=== PATIENT | female | born 1945 | race Caucasian/White ===

== ENCOUNTER 2019-07-01 12:36 | Inpatient (IN) | payer MEDICARE ==
[2019-07-01 13:06] LABS: #Basophils 0.1 thou/uL (0.0-0.2); #Eosinphils 0.1 thou/uL (0.0-0.7); #Lymphocytes 1.6 thou/uL (1.20-3.40); #Neutrophils 9.2 thou/uL (1.40-6.50); %Basophils 0.5 % (0.0-1.0); %Eosinophils 0.6 % (0.0-10.0); %Lymphocytes 13.1 % (21.0-51.0); %Monocytes 8.2 % (0.0-10.0); %Neutrophils 77.6 % (42.0-75.0); Hemoglobin 15.2 g/dL (12.0-16.0); Mean Corpuscular HGB CONC 34.7 g/dL (32.0-36.0); Mean Corpuscular Volume 89.3 fL (78.0-98.0); Mean Platelet Volume 8.4 fL (7.4-10.4); Platelet Count 241 thou/uL (130-400); RBC Distribution Width 11.8 % (11.5-14.5); Red Blood Cell (RBC) Count 4.91 mill/uL (4.20-5.40); White Blood Cell (WBC) Count 11.9 thou/uL (4.8-10.8)
[2019-07-01] MEDS ORDERED: Lorazepam 2 MG/ML VIAL ONE (13:09)
[2019-07-01] MEDS ORDERED: Labetalol HCl 100 MG/20 ML VIAL ONE (13:09)
[2019-07-01 13:11] LABS: INR-International Normal Ratio 0.9; Prothrombin Time 12.5 SEC (12.0-14.7)
[2019-07-01 13:13] LABS: PTT 20.7 SEC (22.9-36.1)
--- NOTE | 2019-07-01 13:21 | RAD ---
Exam: Chest one view HISTORY:Altered mental status Comparison: 09/22/2010 FINDINGS: Cardiac silhouette: Normal Aorta: Slight elongation of the aorta Pulmonary vessels: Normal Costophrenic angles: Clear LUNGS: No masses or consolidation. Lungs are mildly hyperinflated. Pneumothorax: None Osseous abnormalities: None IMPRESSION: No acute cardiopulmonary process.
[2019-07-01 13:24] LABS: ALT (SGPT) 24 U/L (8-55); AST (SGOT) 38 U/L (5-34); Alkaline Phosphatase 95 U/L (40-110); Anion Gap 19 mmol/L (10-20); BUN (Urea Nitrogen) 23 mg/dL (9.8-20.1); Bilirubin, Total 1.1 mg/dL (0.2-1.2); Calc. Creatinine Clearance 0 mL/min (70-130); Calcium 9.9 mg/dL (7.8-10.44); Carbon Dioxide 23 mmol/L (23-31); Chloride 99 mmol/L (98-107); Estimated GFR-MDRD 73; Globulin 2.7 g/dL (2.4-3.5); Glucose 105 mg/dL (83-110); Potassium 3.7 mmol/L (3.5-5.1); Protein, Total 7.7 g/dL (6.0-8.3); Sodium 137 mmol/L (136-145)
--- NOTE | 2019-07-01 13:32 | CT ---
CT BRAIN WITHOUT CONTRAST: HISTORY: Altered mental status. FINDINGS: Comparison is made with the exam of 09/22/2010. There are changes of cortical atrophy and chronic small vessel ischemic disease. There are old lacun ar infarctions in the thalami. No evidence of acute infarction, midline shift, or abnormal extraaxia l fluid collections is seen. Vascular calcifications are noted. The bony calvarium is intact. The visualized paranasal sinuses and mastoid air cells are well aerated. IMPRESSION: No CT evidence of acute intracranial process. Report was called over the telephone to Katia Maradiaga at 1:14 p.m. CODE CR POS: JAMEL
[2019-07-01 13:33] LABS: Acetaminophen Less than 6.0 mcg/mL (10.0-30.0); Alcohol Less than 10 mg/dL (Less than 10); Salicylate Less than 8.0 mg/dL (15.0-30.0)
[2019-07-01 14:33] LABS: Bacteria/HPF None Seen HPF (None Seen); Bilirubin Negative (Negative); Blood, Urine 1+ (Negative); Clarity Clear (Clear); Glucose, Urine (Dipstick) Normal (Negative); Leukocyte Negative Leu/uL (Negative); Nitrite Negative (Negative); Protein, Urine (Dipstick) 10 mg/dL (Neg-Trace); RBC/HPF 0-3 HPF (0-3); Squamous Epithelial 0-3 HPF (0-3); Urobilinogen Normal mg/dL (Less than 2); WBC/HPF 0-3 HPF (0-3)
[2019-07-01 14:38] LABS: Amphetamine Not Detected (NotDetected); Barbiturates Screen Not Detected (NotDetected); Benzodiazepine Screen Not Detected (NotDetected); Cocaine Metabolite Screen Not Detected (NotDetected); Medtox Control Line Valid? VALID (VALID); Medtox Reader # READER 4; Methadone Not Detected (NotDetected); Methamphetamine Not Detected (NotDetected); Opiate Screen Not Detected (NotDetected); Oxycodone Screen Not Detected (NotDetected); Phencyclidine (PCP) Not Detected (NotDetected); THC/Cannabinoid Screen Not Detected (NotDetected); Tricyclic Screen Not Detected (NotDetected)
--- NOTE | 2019-07-01 16:23 | PDOC.FPRHP ---
- History of Present Illness Chief Complaint: confusion History of Present Illness: 74 y/o F with a pmhx of HTN, here today for X3 days of confusion. Pt's family discovered she was not her normal self on Monday. They notices some L-facial droop and non-fluent/confused speech. Pt states, "Something went wrong with her dog through her phone and I could not figure out what I took." Pt denies any CP, WRIGHT, SOB, cough, fever or chills. Pt does admit to being confused and having trouble with her speech and concentration. Pt states she has double vision when looking to the left, but not to the right. She has never had this problem before. Pt's BP was 227/120 upon initial entry to ER. Pt was given labetalol 10 mg IV X3 and 500 mL NS IVF in the ED. Neg CXR Neg Head CT WBC 11.9 UA: ketones and blood + CPK 183 BUN 23 - Allergies/Adverse Reactions Allergies Allergy/AdvReac Type Severity Reaction Status Date / Time No Known Allergies Allergy Verified 07/01/19 17:42 - Home Medications Medication Instructions Recorded Confirmed Type Labetalol HCl 450 mg PO BID 07/01/19 07/01/19 History - History PMHx: HTN PSHx: BTL FHx: Brother: [place] at 46 Sister: HTN Mother: HTN, CAD, [place] Social: Denies tobacco use, etoh, or drug use. Lives alone at home. - Review of Systems General: denies: fever/chills, night sweats Eyes: reports: vision changes (see HPI) Respiratory: denies: cough, shortness of breath Cardiovascular: denies: chest pain, edema Gastrointestinal: denies: nausea, vomiting, diarrhea Skin: denies: rashes, lesions Musculoskeletal: denies: pain, tenderness Neurological: reports: other (facial droop left, confused speech). denies: numbness, weakness Psychological: denies: anxiety - Vital signs BP: 184/109 HR: 78 RR: 25 Tmax: Pox: []% on [] Wt: [] - Physical Exam Constitutional: NAD, well developed -Constitutional: oriented to person and place only. Pt eating a meal with apple upon entry to the ED room. HEENT: normocephalic and atraumatic, PERRLA, EOMI, conjunctiva clear, no scleral icterus, grossly normal hearing, MMM, oropharynx clear -HEENT: double vision in left visual field. Neck: supple, FROM, trachea midline, no LAD, no JVD Chest: no-tender to palpation, no lesions Heart: RRR, pulses present, no edema -Heart: 3/6 sys murmur auscultated loudest over aortic valve. Lungs: CTAB, no respiratory distress, good air movement, no rales/rhonchi, no wheezing, no retractions Abdomen: soft, non-tender, bowel sounds present, no masses/distention, no hernias Musculoskeletal: normal structure, normal tone, ROM grossly normal Neurological: normal sensation -Neurological: Double vision in left visual field. EOMI. Horizontal nystagmus when looking laterally on both sides. PERRLA. Left ptosis. Right smile droop. Sensation intact in all 4 extremities. Strength 5/5 in all 4 extremities. Skin: no rash/lesions, good turgor, capillary refill <2 seconds, no jaundice Heme/Lymphatic: no unusual bruising or bleeding, no purpura, no petechia -Psychiatric: Disoriented to time. Thinks its 2016. [facility] H&P: Results - Labs Result Diagrams: 07/01/19 12:51 07/01/19 12:51 Lab results: WBC 11.9 thou/uL (4.8-10.8) H 07/01/19 12:51 Hgb 15.2 g/dL (12.0-16.0) 07/01/19 12:51 Hct 43.8 % (36.0-47.0) 07/01/19 12:51 MCV 89.3 fL (78.0-98.0) 07/01/19 12:51 Plt Count 241 thou/uL (130-400) 07/01/19 12:51 Neutrophils % 77.6 % (42.0-75.0) H 07/01/19 12:51 Sodium 137 mmol/L (136-145) 07/01/19 12:51 Potassium 3.7 mmol/L (3.5-5.1) 07/01/19 12:51 Chloride 99 mmol/L (98-107) 07/01/19 12:51 Carbon Dioxide 23 mmol/L (23-31) 07/01/19 12:51 BUN 23 mg/dL (9.8-20.1) H 07/01/19 12:51 Creatinine 0.77 mg/dL (0.6-1.1) 07/01/19 12:51 Glucose 105 mg/dL (83-110) 07/01/19 12:51 Calcium 9.9 mg/dL (7.8-10.44) 07/01/19 12:51 Total Bilirubin 1.1 mg/dL (0.2-1.2) 07/01/19 12:51 AST 38 U/L (5-34) H 07/01/19 12:51 ALT 24 U/L (8-55) 07/01/19 12:51 Alkaline Phosphatase 95 U/L (40-110) 07/01/19 12:51 Creatine Kinase 183 U/L (29-168) H 07/01/19 12:51 Serum Total Protein 7.7 g/dL (6.0-8.3) 07/01/19 12:51 Albumin 5.0 g/dL (3.4-4.8) H 07/01/19 12:51 Urine Ketones 20 mg/dL (Negative) A 07/01/19 13:53 Urine Blood 1+ (Negative) A 07/01/19 13:53 Urine Nitrite Negative (Negative) 07/01/19 13:53 Ur Leukocyte Esterase Negative Brandon/uL (Negative) 07/01/19 13:53 Urine RBC 0-3 HPF (0-3) 07/01/19 13:53 Urine WBC 0-3 HPF (0-3) 07/01/19 13:53 Ur Squamous Epith Cells 0-3 HPF (0-3) 07/01/19 13:53 Urine Bacteria None Seen HPF (None Seen) 07/01/19 13:53 - EKG Interpretation EKG: NSP 75 bpm. - Radiology Interpretation MRI - head Status: report reviewed by me (Multiple lacunar infarcts diffusely. Evidence of chronic hypertensive encephalopathy. Old lacunar infarcts in thalami.) FMR H&P: A/P - Problem List (1) Hypertensive emergency Current Visit: Yes Status: Acute Code(s): I16.1 - HYPERTENSIVE EMERGENCY (2) Hypertensive encephalopathy Current Visit: Yes Status: Chronic Code(s): I67.4 - HYPERTENSIVE ENCEPHALOPATHY (3) Leukocytosis, unspecified Current Visit: Yes Status: Acute Code(s): D72.829 - ELEVATED WHITE BLOOD CELL COUNT, UNSPECIFIED (4) Lacunar infarct, acute Current Visit: Yes Status: Acute Code(s): I63.81 - OTHER CEREB INFRC DUE TO OCCLS OR STENOSIS OF SMALL ARTERY (5) Dysphasia Current Visit: Yes Status: Acute Code(s): R47.02 - DYSPHASIA - Plan 74 y/o F presenting to ED with hypertensive encephalopathy 1. Acute Hypertensive Encephalopathy - Initial BP 227/120 - 1st hour goal <180/110 - 23 hours thereafter goal <160/110 - Ordered Nicardipine drip to meet above goal BP's. - Neurology, Dr. Salazar 07/01. Appreciate recommendations. 2. Hypertensive Emergency - Stat MRI: Multiple lacunar infarcts diffusely. Evidence of chronic hypertensive encephalopathy. Old lacunar infarcts in thalami. - Ordered Mag, Phos, TSH - EKG NSR 75 bpm 3. Acute Lacunar Infarcts - Left basal ganglia, associated with punctate hemosiderin, representing hemorrhages - Left temporal lobe, Right occipital lobe, and bilateral cerebellar hemispheres 3. Chronic HTN - Holding labetalol 450 mg BID, while on nicardipine drip - Will re-evaluate and add back once stable. 4. Leukocytosis - WBC 11.9 - ordered procal 5. Dysphasia - 2/2 #1, 2, 3. - neuro consult placed - see BP goals above. - Speech evaluation and assessment before diet ordered placed. NPO in meantime. Code status: full code DVT ppx: SCDs Diet: NPO until speech study/evaluation for diet. Dispo: Pt admitted to CCU for nicardipine drip to manage BP's. Goal <160/110. Anticipate at least 2 nights hospital stay. FMR H&P: Upper Level - Pertinent history 74 year old female presents with a four day history of altered mental status per family. She was reportedly not acting herself on Monday per family. She declined seeking evaluation at that time. Today, her family brought her into ED due to continued concerned. Family reports that they called vocational rehab consultant Assistant [employer] this week and were told to bring patient into ED, but she declined being taken in at the time. She has animals at home that she doesn't want to leave. Patient cannot recall the name of her PCP but states she sees Dr. Vasquez who provides the majority of her care. She has taken HCTZ in the past but had a bad reaction. Patient was on labetolol BID prior to admission. She saw Dr. Vasquez approximately two weeks ago and everything checked out good at the time. Family is uncertain if she had an echo done previously. Patient's sister and brother are both on metoprolol and have had difficult to treat BP similar to patient. The metoprolol reportedly works well. - Pertinent findings General: Alert and oriented. Answering questions during my exam. Dozing off intermittently. HEENT: MMM Cardio: 3/6 systolic murmur heard best at right sternal border Resp: No acute respiratory distress Abdomen: Soft, nontender Ext: No cyanosis or edema Neuro: Right facial droop, left ptosis - Plan Date/Time: 07/01/191613 I, Adriane Salcedo, have evaluated this patient and agree with findings/plan as outlined by culinary internship resident. Pertinent changes/additions are listed here. Hypertensive encephalopathy/Hypertensive emergency - Waxing and waning mental status - BP on admission >220/110 - Admit to ICU on nicardipine drip; goal BP in first hour 180/120 and 160/110 for next 23 hours - Monitor mental status - Stat MRI - CT brain with old lacunar infarcts, but nothing new - Consult neurology 07/01; appreciate recommendations - EKG NSR - Neuro checks - Cardiology consult in AM; Dr. Vasquez is primary Assistant [employer] Chronic HTN - Holding labetalol 450 mg BID, while on nicardipine drip - Will re-evaluate and add back once stable. Leukocytosis - WBC 11.9 - ordered procal, suspect leukamoid reaction Dysphasia - 2/2 to hypertensive encephalopathy - Neuro consult placed - See BP parameters above - Speech evaluation and assessment before diet ordered placed. NPO in meantime Systolic murmur - Will order echo if one not done recently Code status: Full code DVT ppx: SCDs Diet: NPO until speech study/evaluation for diet Dispo: Pt admitted to CCU for nicardipine drip to manage BP's. Goal <160/110. Anticipate at least 2 nights hospital stay. Addendum - Attending - Attending Attestation Date/Time: 07/01/19 3448 I personally evaluated the patient and discussed the management with Dr. Carmona I agree with the History, Examination, Assessment and Plan documented above with any addition or exceptions noted below.
[2019-07-01 16:32] LABS: Troponin I Less than 0.010 ng/mL (< 0.028)
--- NOTE | 2019-07-01 17:41 | PDOC.FM ---
- Objective Result Diagrams: 07/01/19 12:51 07/01/19 12:51 Addendum - Attending - Attending Attestation Date/Time: 07/01/19 1729 I personally evaluated the patient and discussed the management with Dr. Carmona/ Matias I agree with the History, Examination, Assessment and Plan documented in Resident Hx&PE in separate document with any addition or exceptions noted below. 74 yo HTN female brought in to ER by her Sister. Patient with confusion last 4 days and refused to go to ER. despite her children urging her to seek medical care. Patient with anomic aphasia, confabulating ,trying to feed dog a cell phone. Patient with initial BP in ER 227/120 very labile readings. NIH score [address] no acute changes. PMHX: Meds Labetolol Allergies NKDA Social 3 children lives alone [place] Habits nonsmoker non drinker Surgery BTL ROS limited by patient confusion HTN,Gout see resident note for detailes P.E. alert pleasant female repeatedly asking to go home BP 180/115 at time visit P 70 regular afebrile HEENT mild right sided facial droop patient with c/o diplopia with left lateral gaze Neck supple no JVD no carotid bruit appreciated Lung CTA Heart NSR no gallop[ no murmer Abdomen soft non tender Ext no C/C/E Neuro oriented to person marked confusion anomic aphasia mild right sided facial droop otherwise CN 2-12 intact nl reflexes A. HTN encephalopathy P. admit to ICU for IV Cardene drip f/u MRI brain when more stable discussed with patient and family she is full code see resident note for further detail
--- NOTE | 2019-07-01 17:45 | MRI ---
MRI BRAIN NONCONTRAST: DATE: 07/01/2019 HISTORY: 74-year-old female with hypertensive emergency. Memory loss and facial droop. COMPARISON: No prior brain MRIs. FINDINGS: There is a tight cluster of several small subcentimeter foci of moderate T2 hyperintensity in the med ial aspect of the left basal ganglia anteriorly with restricted diffusion, representing acute or subacute lacunar infarctions. There are also additional bilateral old lacunar infarctions in the thal ami. Some of them are associated with punctate foci of hemosiderin representing remote tiny hemorrhages. A few these are also seen scattered in left temporal lobe, right occipital lobe, and carol ann ateral cerebellar hemispheres. There are patchy multifocal regions of periventricular, deep, and subcortical white matter T2 hyperin tensities representing chronic ischemic white matter changes due to small vessel disease. Ventricles are normal in size and configuration. No mass effect or midline shift. 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 No evidence of acute intracranial hemorrhage. No extra-axial fluid collection. IMPRESSION: 1) acute/subacute cluster of several tiny lacunar infarctions in the left thalamus. 2) multiple bilateral old lacunar infarctions in the thalami. 3) evidence for chronic hypertensive encephalopathy. 4) moderate degree of chronic ischemic white matter changes.
[2019-07-01] MEDS ORDERED: Ondansetron ODT 4 MG TAB SL PRN (17:57)
[2019-07-01] MEDS ORDERED: Sodium Chloride 0.9% 1,000 ML IV SCH (17:57)
[2019-07-01] MEDS ORDERED: Acetaminophen 325 MG TAB PO PRN (17:57)
[2019-07-01] MEDS ORDERED: HYDROcodone/Acetaminophen 5/325 mg Tablet PO PRN ×2 (17:57)
[2019-07-01] MEDS ORDERED: Ondansetron PF 4 MG/2 ML Vial IVP PRN (17:57)
[2019-07-01 18:09] VITALS: BMI 26.9
[2019-07-01] MEDS: niCARdipine 25 MG in Sodium Chloride 0.9% 250 ML 240 ML IVPB SCH ×2 (19:09→22:26)
[2019-07-01 19:48] LABS: Magnesium 2.1 mg/dL (1.6-2.6); Phosphorus 2.4 mg/dL (2.3-4.7)
[2019-07-01 19:52] LABS: Troponin I 0.013 ng/mL (< 0.028)
[2019-07-01] MEDS: Lactated Ringer's 1,000 ML IV SCH (21:50)
[2019-07-02] MEDS: Lactated Ringer's 1,000 ML IV SCH (05:19)
[2019-07-02 05:34] LABS: Eosinophils 2 % (0-10); Hemoglobin 13.7 g/dL (12.0-16.0); Lymphocytes 19 % (21-51); MDiff Complete? YES; Mean Corpuscular HGB CONC 32.8 g/dL (32.0-36.0); Mean Corpuscular Hemoglobin 29.4 pg (27.0-31.0); Mean Corpuscular Volume 89.7 fL (78.0-98.0); Mean Platelet Volume 7.7 fL (7.4-10.4); Monocytes 7 % (0-10); Neutrophil 72 % (42-75); Platelet Count 230 thou/uL (130-400); Platelet Morphology Comment Appears Adequate; RBC Distribution Width 11.8 % (11.5-14.5); Red Blood Cell (RBC) Count 4.66 mill/uL (4.20-5.40); White Blood Cell (WBC) Count 10.3 thou/uL (4.8-10.8)
[2019-07-02 05:39] LABS: ALT (SGPT) 22 U/L (8-55); AST (SGOT) 24 U/L (5-34); Albumin 4.1 g/dL (3.4-4.8); Alkaline Phosphatase 80 U/L (40-110); Anion Gap 14 mmol/L (10-20); BUN (Urea Nitrogen) 10 mg/dL (9.8-20.1); Bilirubin, Total 1.1 mg/dL (0.2-1.2); Calc. Creatinine Clearance 91 mL/min (70-130); Calcium 8.8 mg/dL (7.8-10.44); Carbon Dioxide 24 mmol/L (23-31); Chloride 102 mmol/L (98-107); Estimated GFR-MDRD Greater than 90; Globulin 2.4 g/dL (2.4-3.5); Glucose 110 mg/dL (83-110); Protein, Total 6.5 g/dL (6.0-8.3); Sodium 137 mmol/L (136-145)
--- NOTE | 2019-07-02 05:57 | PDOC.FM ---
- Subjective Subjective: Patient is a much better this morning, she is sitting up eating breakfast upon entry to the room. Patients blood pressure was controlled overnight on the nicardipine drip. Today we will titrate nicardipine drip down and try to transfer to tele. Patient denies any pain or headache. Patient denies any chest pain or shortness of breath. Patient confusion is much better this morning. - Objective MAR Reviewed: Yes Vital Signs & Weight: Vital Signs (12 hours) Temp Pulse Ox 07/02/19 03:00 98.2 F 07/01/19 23:00 98.5 F 07/01/19 20:00 96 07/01/19 19:00 98.2 F 07/01/19 18:04 100 Weight Weight 68.9 kg Most Recent Monitor Data Heart Rate from ECG 74 NIBP 131/76 NIBP BP-Mean 94 Respiration from ECG 17 SpO2 96 I&O: 06/30/19 07/01/19 07/02/19 06:59 06:59 06:59 Intake Total 1876 Output Total 700 Balance 1176 Result Diagrams: 07/02/19 04:59 07/02/19 04:59 Phys Exam - Physical Examination Constitutional: NAD HEENT: PERRLA, moist MMs, sclera anicteric, oral pharynx no lesions Neck: no nodes, no JVD, supple, full ROM Respiratory: no wheezing, no rales, no rhonchi, clear to auscultation bilateral Cardiovascular: RRR, no rub 2/6 sys murmur Gastrointestinal: soft, non-tender, no distention, positive bowel sounds Musculoskeletal: no edema, pulses present Neurological: normal sensation, moves all 4 limbs L ptosis and R mouth droop improves slightly today. Double vision L visual Lymphatic: no nodes Psychiatric: normal affect Skin: no rash, normal turgor, cap refill <2 seconds Dx/Plan (1) Hypertensive emergency Code(s): I16.1 - HYPERTENSIVE EMERGENCY Status: Acute (2) Hypertensive encephalopathy Code(s): I67.4 - HYPERTENSIVE ENCEPHALOPATHY Status: Chronic (3) Leukocytosis, unspecified Code(s): D72.829 - ELEVATED WHITE BLOOD CELL COUNT, UNSPECIFIED Status: Acute (4) Lacunar infarct, acute Code(s): I63.81 - OTHER CEREB INFRC DUE TO OCCLS OR STENOSIS OF SMALL ARTERY Status: Acute (5) Dysphasia Code(s): R47.02 - DYSPHASIA Status: Acute (6) Systolic murmur Code(s): R01.1 - CARDIAC MURMUR, UNSPECIFIED Status: Acute - Plan Plan: 74 y/o F presenting to ED with hypertensive encephalopathy 1. Acute Hypertensive Encephalopathy - Initial BP 227/120 - 1st hour goal <180/110 - 23 hours thereafter goal <160/110 - Ordered Nicardipine drip to meet above goal BP's. Will titrate down and transition to oral antihypertensives. Transfer to tele floor, once off drip. - Neurology, Dr. Salazar 07/01. Appreciate recommendations. 2. Hypertensive Emergency - Stat MRI: Multiple lacunar infarcts diffusely. Evidence of chronic hypertensive encephalopathy. Old lacunar infarcts in thalami. - Mag, Phos, TSH normal - EKG NSR 75 bpm 3. Acute Lacunar Infarcts - Left basal ganglia, associated with punctate hemosiderin, representing hemorrhages - Left temporal lobe, Right occipital lobe, and bilateral cerebellar hemispheres 3. Chronic HTN - Holding labetalol 450 mg BID, while on nicardipine drip - Will re-evaluate and add back once stable. 4. Leukocytosis, improved - WBC 11.9 --> 10.3 - Procal 0.02 5. Dysphasia - 2/2 #1, 2, 3. - neuro consult placed - see BP goals above. - Speech evaluation and assessment before diet ordered placed. NPO in meantime. 6. Systolic Murmur - TTE Echo - Most likely from long standing HTN. Code status: full code DVT ppx: SCDs Diet: NPO until speech study/evaluation for diet. Dispo: Pt admitted to CCU for nicardipine drip to manage BP's. Goal <160/110. Anticipate at least 2 nights hospital stay.
[2019-07-02] MEDS ORDERED: Potassium Chloride 20 MEQ TAB PO SCH (07:45)
--- NOTE | 2019-07-02 11:19 | CON ---
DATE OF CONSULTATION: 07/02/2019 REASON FOR CONSULTATION: ICU placement. HISTORY OF PRESENT ILLNESS: The patient is a 74-year-old female, who was brought to the hospital yesterday with altered mental status. She apparently developed a left-sided facial droop and confused speech this past Monday. She was resistant to coming to the hospital. She called her signal operator and told to come to the hospital. She was found to have a grossly elevated blood pressure. I am not sure if she has been taking her medications at home or not. She says she is back to normal, although I find half of her answers make absolutely no sense when I questioned her. PAST MEDICAL HISTORY: Hypertension. PAST SURGICAL HISTORY: She has bilateral tubal ligation. FAMILY MEDICAL HISTORY: Remarkable for coronary artery disease in her brother; hypertension in her sister; hypertension, coronary artery disease, and myocardial infarction in her mother. SOCIAL HISTORY: Nonsmoker. Does not consume alcohol. Does not use illicit drugs. Lives alone at home. HOME MEDICATIONS: Prior to admission, labetalol 450 mg b.i.d. REVIEW OF SYSTEMS: The patient basically denies having review of systems except for decreased eyesight in her left eye. PHYSICAL EXAMINATION: VITAL SIGNS: Temperature 98.5, pulse 82, blood pressure 128/83, O2 saturation 94%. She is currently off nicardipine since about 6:00 a.m. HEENT: Pupils are reactive. Sclerae are anicteric. Oropharynx clear. She has slight left facial droop. Tongue protrudes midline. NECK: No adenopathy, JVD, or bruits. CARDIAC: S1 and S2 regular without audible murmur. LUNGS: Clear to auscultation. ABDOMEN: Soft and nontender. EXTREMITIES: No clubbing, cyanosis, or edema. NEUROLOGIC: All 4 extremities without difficulty. LABORATORY DATA: White blood cell count 10.3, hematocrit 41.7, and platelet count 230. Sodium 137, potassium 3, chloride 102, CO2 of 24, BUN 10, creatinine 0.6, glucose 110. Urinalysis shows some ketones, some blood, and some protein. Tox screen was negative. DIAGNOSTIC DATA: Brain MRI showed acute subacute lacunar infarctions in the left thalamus. She had old lacunar infarctions in the thalamus. She had evidence of chronic hypertensive encephalopathy and moderate degree of chronic ischemic changes. Chest x-ray shows tortuous aorta. No mass, effusion, or infiltrate present. ASSESSMENT: 1. Altered mental status, likely secondary to hypertensive encephalopathy. 2. Mild hypokalemia. PLAN: 1. Replace potassium. 2. Monitor blood pressure closely. I would not let it drop down any further than what it is right now. 3. Agree with Neurology consultation. We will follow as long as she is in the ICU. Job ID: [id number]
--- NOTE | 2019-07-02 11:43 | PRG ---
DATE OF SERVICE: 07/02/2019 SUBJECTIVE: Ms. Davis is a pleasant 74-year-old lady with a history of hypertension, who presented to our ER with 3 days of confusion and disorientation. She was brought to the ER and was found to have a blood pressure of 227/120. Her symptoms and clinical condition were consistent with hypertensive emergency and hypertensive encephalopathy. She was started initially on labetalol and switched to a Cardene infusion. Within 1-2 hours, her sensorium had returned to normal. This morning, she is resting in bed quietly. She is oriented x3, in no distress. Quite pleasant. Her blood pressure is 130/70, and she is currently off her Cardene infusion. She will be transferred to a regular floor. Interestingly, her brain MRI showed several lacunar infarcts, suggestive of a long history of hypertensive cerebrovascular disease. There were no acute changes, and in fact, changes noted on the MRI were all consistent with chronic hypertensive encephalopathy. In the event with treatment, she is now back to her baseline and will be transferred to a regular floor. We will start her on a calcium channel kulwinder and we can maintain normotension for the next 24 hours, likely discharge her in 1-2 days. LABORATORY DATA: Her sodium is 137, potassium 3, chloride 102, bicarb 24, BUN is 10, creatinine was 0.6, and her GFR was greater than 90. Job ID: [id number]
[2019-07-02] MEDS ORDERED: Amlodipine 10 MG TAB PO SCH (12:15)
[2019-07-02 13:08] LABS: Hemoglobin A1c 5.4 % (4.0-6.0)
[2019-07-02] MEDS ORDERED: Iopamidol-370 76% 500 ML 1 ML ONE (13:46)
--- NOTE | 2019-07-02 15:58 | CT ---
CT ANGIOGRAM NECK WITH CONTRAST: DATE: 07/02/2019 HISTORY: 74-year-old female with stroke. Acute left thalamic lacunar infarctions, and old bilateral thalamic l acunar infarctions. TECHNIQUE: After IV contrast injection, arterial bolus chasing technique scan performed from proximal ascending aorta to floor of sella turcica. Coronal and sagittal 3-D MIP reconstructions. FINDINGS: All arteries are tortuous. Aortic arch: Atherosclerotic calcification. Ectasia of ascending aorta. No dissection, stenosis, or a neurysm. Brachiocephalic: No stenosis Right subclavian: Midportion obscured by streak artifact from adjacent contrast bolus in right subcla vian vein. Proximal portion normal caliber. Right common carotid: No stenosis. Left common carotid: No stenosis. Right vertebral: No stenosis in cervical portion. Heavily calcified atherosclerotic plaque in intracr anial portion. Left vertebral: Dominant. No stenosis in cervical portion. Extensive calcified atherosclerotic plaque in intracranial portion. Multifocal mild to moderate stenosis in the intracranial left vertebral. Dolichoectasia intracranial vertebral arteries. Right internal carotid: Mild calcified plaque at origin. No stenosis. Left internal carotid: Minimal calcified plaque at origin. No stenosis. IMPRESSION: 1. No hemodynamically significant stenosis in the major arteries of neck. 2. For thalamic infarctions, consider CT angiogram of the head.
--- NOTE | 2019-07-02 18:00 | CON ---
DATE OF CONSULTATION: 07/02/2019 CONSULTING PHYSICIAN: [facility]. IMPRESSION: 1. Left thalamic stroke with some residual mild diplopia. 2. Two hypertension. PLAN: 1. Aspirin 81 mg per day. 2. Lipitor 20 mg per day. 3. Follow up on echocardiogram and carotid angiogram reports. HISTORY OF PRESENT ILLNESS: Ms. Davis is a 74-year-old female, who was brought in by a friend due to the fact that she was acting oddly. She seemed to be having tangential thoughts and not really functioning in appropriate fashion. She was brought to the hospital for evaluation. She was noted to be markedly hypertensive and subsequently admitted for blood pressure management. Since admission, she reports that she is having double vision. She is shutting her left eye in order to maintain single vision. The objects reportedly are [id number] in location. She denies any headache, nausea, vomiting, vertigo, chest pain, shortness breath, lateralized weakness, or numbness. She denies any past history of stroke. She was on medication for blood pressure. No other medicines prior to admission. PAST HISTORY: Hypertension. ALLERGIES: NONE REPORTED. SOCIAL HISTORY: No tobacco use. FAMILY HISTORY: Noncontributory. REVIEW OF SYSTEMS: Ten-system review of systems is otherwise negative. PHYSICAL EXAMINATION: GENERAL: She is a healthy-appearing elderly woman, sitting up, eating supper. VITAL SIGNS: Blood pressure 147/102, pulse 93, and respirations 24. HEENT: Pupils are equal and reactive. Conjunctivae clear. Oropharynx clear. Cranium, normocephalic and atraumatic. NECK: Supple. No lymphadenopathy. EXTREMITIES: No cyanosis, clubbing, or edema. NEUROLOGIC: She is alert and cooperative. Her speech is fluent and clear. Cranial nerve exam showed intact eye movements. I could not really appreciate any exotropia or esotropia. No nystagmus was present. Motor exam showed good phone banker strength bilaterally. She had no fix or drift. There was no tremor or dysmetria present. Sensation was intact to touch. She can stand and walk independently. DIAGNOSTIC STUDIES: EKG shows normal sinus rhythm. MRI of the brain showed some punctate areas of ischemia in the left thalamus and a moderate amount of chronic small-vessel ischemic changes in the periventricular region. Laboratory studies including CBC, comprehensive metabolic panel, urinalysis, and tox screen were all negative for any abnormalities. SUMMARY: This is an elderly lady with hypertensive crisis in a secondary small-vessel stroke. I agree with your evaluation. I would start antiplatelet therapy and a statin. Job ID: [id number]
[2019-07-02] MEDS: Atorvastatin Calcium 20 MG TAB PO SCH (21:00)
[2019-07-02] MEDS ORDERED: Labetalol HCl 100 MG/20 ML VIAL SLOW IVP PRN (22:54)
[2019-07-02] MEDS ORDERED: Lisinopril 10 MG TAB PO SCH (23:00)
[2019-07-02] MEDS ORDERED: hydrALAZINE 20 MG/ML VIAL SLOW IVP PRN (23:51)
[2019-07-03 05:24] LABS: Hemoglobin 13.7 g/dL (12.0-16.0); Mean Corpuscular HGB CONC 33.3 g/dL (32.0-36.0); Mean Corpuscular Volume 90.2 fL (78.0-98.0); Mean Platelet Volume 7.8 fL (7.4-10.4); Platelet Count 231 thou/uL (130-400); RBC Distribution Width 11.8 % (11.5-14.5); Red Blood Cell (RBC) Count 4.55 mill/uL (4.20-5.40); White Blood Cell (WBC) Count 8.4 thou/uL (4.8-10.8)
[2019-07-03 05:25] LABS: Eosinophils 1 % (0-10); Lymphocytes 27 % (21-51); MDiff Complete? YES; Monocytes 3 % (0-10); Neutrophil 69 % (42-75); Platelet Morphology Comment Appears Adequate; RBC Morphology Normal
[2019-07-03 05:28] LABS: ALT (SGPT) 19 U/L (8-55); AST (SGOT) 19 U/L (5-34); Albumin 3.9 g/dL (3.4-4.8); Alkaline Phosphatase 80 U/L (40-110); Anion Gap 13 mmol/L (10-20); BUN (Urea Nitrogen) 8 mg/dL (9.8-20.1); Bilirubin, Total 1.1 mg/dL (0.2-1.2); Calc. Creatinine Clearance 92 mL/min (70-130); Carbon Dioxide 22 mmol/L (23-31); Cardiac Risk 3.9 (Less than 4.5); Chloride 102 mmol/L (98-107); Cholesterol 180 mg/dl (< 200 Desired); Estimated GFR-MDRD Greater than 90; Globulin 2.4 g/dL (2.4-3.5); Glucose 109 mg/dL (83-110); HDL Cholesterol 46 mg/dL (>60 Neg Risk); LDL Cholesterol, Calculated 122 mg/dL; Potassium 3.2 mmol/L (3.5-5.1); Protein, Total 6.3 g/dL (6.0-8.3); Sodium 134 mmol/L (136-145); Triglycerides 62 mg/dL (Less than 150)
--- NOTE | 2019-07-03 06:06 | PDOC.FM ---
- Subjective Subjective: Pt states she had a bad cough when previously taking lisinopril and asks for different BP control option. BP elevated overnight, came down post PRN medications. No CP, WRIGHT. Pt states her daughter will come and take care of her post d/c for a full week. Feels confident in return home. Wants to f/u with [facility], to establish PCP. - Objective Vital Signs & Weight: Vital Signs (12 hours) Temp Pulse Resp BP BP BP Pulse Ox 07/03/19 04:00 98.5 F 72 20 138/86 99 07/03/19 01:01 97.6 F 75 18 161/99 H 97 07/02/19 23:35 180/95 H 07/02/19 22:46 80 183/106 H 07/02/19 20:59 83 171/100 H 07/02/19 20:00 97.9 F 90 18 177/109 H 97 Weight Weight 68.9 kg Most Recent Monitor Data Heart Rate from ECG 86 NIBP 158/99 NIBP BP-Mean 118 Respiration from ECG 21 SpO2 99 I&O: 07/01/19 07/02/19 07/03/19 06:59 06:59 06:59 Intake Total 1876 796 Output Total 700 576 Balance 1176 220 Result Diagrams: 07/03/19 04:40 07/03/19 04:40 Phys Exam - Physical Examination Constitutional: NAD HEENT: moist MMs, sclera anicteric Neck: no nodes, supple, full ROM Respiratory: no wheezing, no rales, no rhonchi, clear to auscultation bilateral Cardiovascular: RRR, no rub 2/6 sys murmur Gastrointestinal: soft, non-tender, no distention, positive bowel sounds Musculoskeletal: no edema, pulses present Neurological: normal sensation, moves all 4 limbs double vision in left eye. Covering overleft eye present. 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 Acute Hypertensive Encephalopathy - Initial BP 227/120 - 1st hour goal <180/110 - 23 hours thereafter goal <160/110 - Ordered Nicardipine drip to meet above goal BP's initially in CCU. Titrated down and transitioned to oral antihypertensives. Transfered to tele floor - Neurology, Dr. Salazar 07/01. Appreciate recommendations. Added ASA and Atorvastatin - Added Amlodipine 10 mg daily and Lisinopril 10 mg daily for BP control. 2. Hypertensive Emergency - Stat MRI: Multiple lacunar infarcts diffusely. Evidence of chronic hypertensive encephalopathy. Old lacunar infarcts in thalami. - Mag, Phos, TSH normal - EKG NSR 75 bpm 3. Acute Lacunar Infarcts - Left basal ganglia, associated with punctate hemosiderin, representing hemorrhages - Left temporal lobe, Right occipital lobe, and bilateral cerebellar hemispheres - CTA neck showed no significant neck stenosis. 3. Chronic HTN - Holding labetalol 450 mg BID, while on nicardipine drip - continue to monitor closely. while on Tele floor - Started lisinopril and amlodipine. 4. Leukocytosis, improved - WBC 11.9 --> 10.3 - Procal 0.02 5. Dysphasia - 2/2 #1, 2, 3. - neuro consult placed - see BP goals above. - Speech evaluation and assessment before diet ordered placed. NPO in meantime. 6. Systolic Murmur - TTE Echo: EF 65-70%, mitral annular calcifications, thickened aortic valve leaflets. - Most likely from long standing HTN. 7. Monocular diplopia of Left Eye. - Dr. Salazar suggests this will gradually better over time - from lacunar infarcts Code status: full code DVT ppx: SCDs Diet: NPO until speech study/evaluation for diet. Dispo: Stable; Transfered to tele. Anticipate at least 2 nights hospital stay.
[2019-07-03] MEDS ORDERED: Potassium Chloride 20 MEQ TAB PO SCH (06:15)
[2019-07-03] MEDS: Amlodipine 10 MG TAB PO SCH (08:26)
[2019-07-03] MEDS: Aspirin 81 mg Enteric Coated Tablet PO SCH (08:26)
[2019-07-03] MEDS ORDERED: Losartan 25 MG TAB PO SCH (09:00)
[2019-07-03] MEDS ORDERED: Lisinopril 10 MG TAB PO SCH (09:00)
--- NOTE | 2019-07-03 11:24 | PRG ---
DATE OF SERVICE: 07/03/2019 Ms. Davis is resting quietly in bed. We are making adjustments in her blood pressure medications as she is at times still having systolics up to 180 to 90. Otherwise, she is doing well. Her MRI in fact did demonstrate a jessica stroke of the lacunar type. We have of course added aspirin and a statin and we will continue to adjust blood pressure medications in anticipation of discharge in one or two days. Job ID: [id number]
[2019-07-03] MEDS ORDERED: Nebivolol HCl 5 MG TAB PO SCH (12:05)
--- NOTE | 2019-07-03 12:08 | PDOC.BPN ---
- Brief Progress Note Pt was admitted on 07/01 afternoon with X4 day hx of AMS. Pt's MRI showed evidence of Hypertensive encephalopathy, both acute and chronic changes, including punctate hemosiderin suggesting punctate hemorrhages. Neurology was consulted while pt was placed on a nicardipine drip in the CCU, and neurology was consulted. This was the only therapy initiated emergently without further neurology evaluation and recommendations in the setting of HTN Emergency and risk of bleed. The BP reduction greatly improved pt's encephalopathic symptoms. Neurology saw patient on 07/02, and added ASA and Atorvastatin to be started on 07/03. Appreciate the recommendations of neurology.
[2019-07-03 14:01] LABS: Creatinine, Urine 129.41 mg/dL (47-110)
--- NOTE | 2019-07-03 14:02 | ULT ---
RENAL ULTRASOUND: DATE: 07/03/2019. PROVIDED CLINICAL HISTORY: Hypertension. FINDINGS: Comparison 09/22/2010. The right kidney measures about 10.3 x 5.2 x 5.2 cm and demonstrates no evidence for hydronephrosis o r mass. The left kidney measures about 10.4 x 5.1 x 5.4 cm and demonstrates no evidence for hydronephrosis or mass. The urinary bladder is incompletely distended and well evaluated. IMPRESSION: 1. No evidence for renal size asymmetry. 2. No evidence for hydronephrosis. POS: JAMEL
[2019-07-03] MEDS: Atorvastatin Calcium 20 MG TAB PO SCH (20:48)
[2019-07-04 05:15] LABS: ALT (SGPT) 20 U/L (8-55); AST (SGOT) 16 U/L (5-34); Albumin 4.1 g/dL (3.4-4.8); Alkaline Phosphatase 86 U/L (40-110); Anion Gap 11 mmol/L (10-20); BUN (Urea Nitrogen) 13 mg/dL (9.8-20.1); Bilirubin, Total 1.1 mg/dL (0.2-1.2); Calc. Creatinine Clearance 88 mL/min (70-130); Calcium 8.9 mg/dL (7.8-10.44); Carbon Dioxide 26 mmol/L (23-31); Chloride 103 mmol/L (98-107); Estimated GFR-MDRD Greater than 90; Globulin 2.3 g/dL (2.4-3.5); Glucose 110 mg/dL (83-110); Potassium 3.7 mmol/L (3.5-5.1); Protein, Total 6.4 g/dL (6.0-8.3); Sodium 136 mmol/L (136-145)
[2019-07-04 05:19] LABS: Band 1 % (5-11); Eosinophils 3 % (0-10); Hemoglobin 13.9 g/dL (12.0-16.0); Lymphocytes 18 % (21-51); MDiff Complete? YES; Mean Corpuscular HGB CONC 33.8 g/dL (32.0-36.0); Mean Corpuscular Hemoglobin 30.7 pg (27.0-31.0); Mean Corpuscular Volume 90.7 fL (78.0-98.0); Monocytes 6 % (0-10); Neutrophil 72 % (42-75); Platelet Count 227 thou/uL (130-400); Platelet Morphology Comment Appears Adequate; Red Blood Cell (RBC) Count 4.53 mill/uL (4.20-5.40); White Blood Cell (WBC) Count 9.7 thou/uL (4.8-10.8)
--- NOTE | 2019-07-04 06:14 | PDOC.FM ---
- Subjective Subjective: Pt sleeping. No overnight events. sys BP 170's-150 overnight. - Objective MAR Reviewed: Yes Vital Signs & Weight: Vital Signs (12 hours) Temp Pulse Resp BP Pulse Ox 07/04/19 03:30 97.6 F 60 16 176/90 H 95 07/03/19 23:00 98.5 F 66 16 170/86 H 96 07/03/19 20:00 97 07/03/19 19:38 98.1 F 67 16 133/85 97 Weight Weight 68.9 kg Most Recent Monitor Data Heart Rate from ECG 86 NIBP 158/99 NIBP BP-Mean 118 Respiration from ECG 21 SpO2 99 I&O: 07/02/19 07/03/19 07/04/19 06:59 06:59 06:59 Intake Total 1876 796 300 Output Total 700 576 Balance 1176 220 300 Result Diagrams: 07/04/19 04:44 07/04/19 04:44 Phys Exam - Physical Examination Constitutional: NAD HEENT: moist MMs Neck: no nodes, no JVD, supple, full ROM Respiratory: no wheezing, no rales, no rhonchi, clear to auscultation bilateral Cardiovascular: RRR, no rub 2/3 sys murmur Gastrointestinal: soft, non-tender, no distention, positive bowel sounds Musculoskeletal: no edema, pulses present Neurological: normal sensation, moves all 4 limbs Lymphatic: no nodes Psychiatric: normal affect, A&O x 3 Skin: no rash, normal turgor, cap refill <2 seconds Dx/Plan (1) Hypertensive emergency Code(s): I16.1 - HYPERTENSIVE EMERGENCY Status: Acute (2) Hypertensive encephalopathy Code(s): I67.4 - HYPERTENSIVE ENCEPHALOPATHY Status: Chronic (3) Leukocytosis, unspecified Code(s): D72.829 - ELEVATED WHITE BLOOD CELL COUNT, UNSPECIFIED Status: Acute (4) Lacunar infarct, acute Code(s): I63.81 - OTHER CEREB INFRC DUE TO OCCLS OR STENOSIS OF SMALL ARTERY Status: Acute (5) Dysphasia Code(s): R47.02 - DYSPHASIA Status: Acute (6) Systolic murmur Code(s): R01.1 - CARDIAC MURMUR, UNSPECIFIED Status: Acute (7) Monocular diplopia of left eye Code(s): H53.2 - DIPLOPIA Status: Acute - Plan Plan: 74 y/o F presenting to ED with hypertensive encephalopathy, starting BP regimen. Will stabilize BP while being monitored. 1. Acute Hypertensive Encephalopathy, improved - Initial BP 227/120 - 1st hour goal <180/110 - 23 hours thereafter goal <160/110 - Pt was admitted on 07/01 afternoon with X4 day hx of AMS. Pt's MRI showed evidence of Hypertensive encephalopathy, both acute and chronic changes, including punctate hemosiderin suggesting punctate hemorrhages. Neurology was consulted while pt was placed on a nicardipine drip in the CCU, and neurology was consulted. This was the only therapy initiated emergently without further neurology evaluation and recommendations in the setting of HTN Emergency and risk of bleed. The BP reduction greatly improved pt's encephalopathic symptoms. Neurology saw patient on 07/02, and added ASA and Atorvastatin to be started on 07/03. Appreciate the recommendations of neurology. - Ordered Nicardipine drip to meet above goal BP's initially in CCU. Titrated down and transitioned to oral antihypertensives. Transferred to tele floor - Neurology, Dr. Salazar 07/01. Appreciate recommendations. Added ASA and Atorvastatin - Added Amlodipine 10 mg daily, Bystolic and Losartan 50 mg BID for BP control. 2. Hypertensive Emergency - Stat MRI: Multiple lacunar infarcts diffusely. Evidence of chronic hypertensive encephalopathy. Old lacunar infarcts in thalami. - Mag, Phos, TSH normal - EKG NSR 75 bpm 3. Acute Lacunar Infarcts - Left basal ganglia, associated with punctate hemosiderin, representing hemorrhages - Left temporal lobe, Right occipital lobe, and bilateral cerebellar hemispheres lacunar infarcts - CTA neck showed no significant neck stenosis. 3. Chronic HTN - continue to monitor closely. while on Tele floor. BP's as high as sys 176 overnight. - New BP regimen: Losartan 50 mg BID, Amlodipine 10 mg daily, Bystolic 10 mg daily- will titrate up. 4. Leukocytosis, improved - WBC 11.9 --> 10.3 - Procal 0.02 5. Dysphasia, improved - 2/2 #1, 2, 3. - neuro consult placed, following recs. - see BP goals above. 6. Systolic Murmur - TTE Echo: EF 65-70%, mitral annular calcifications, thickened aortic valve leaflets. - Most likely from long standing HTN. 7. Monocular diplopia of Left Eye. - Dr. Salazar suggests this will gradually better over time - from lacunar infarcts Code status: full code DVT ppx: SCDs Diet: HH diet Dispo: Stable; Transferred to tele. Anticipate at least 2 nights hospital stay.
[2019-07-04] MEDS: Amlodipine 10 MG TAB PO SCH (08:49)
[2019-07-04] MEDS: Aspirin 81 mg Enteric Coated Tablet PO SCH (08:49)
[2019-07-04] MEDS ORDERED: Nebivolol HCl 5 MG TAB PO SCH ×2 (09:00)
[2019-07-04] MEDS ORDERED: Losartan 25 MG TAB PO SCH (09:00)
[2019-07-04 11:41] VITALS: TEMP 97.6
[2019-07-04 11:59] VITALS: BP 186/92
--- NOTE | 2019-07-04 12:22 | PRG ---
DATE OF SERVICE: 07/04/2019 Ms. Davis is awake and alert this morning. She is very pleasant. Her blood pressure is 148/98. We have added several medications and these will continue to be adjusted as an outpatient. In the event, she is ready for discharge, and in addition to her antihypertensive regimen, she will be on aspirin and atorvastatin with eventual increase of dosage to 80 mg. She has been told to follow up soon within 3 to 5 days with her PCP and I believe she has chosen [facility]. Job ID: [id number]
[2019-07-04] MEDS ORDERED: Atorvastatin Calcium 40 MG TAB PO SCH (21:00)
--- NOTE | 2019-07-05 09:44 | DIS ---
DATE OF ADMISSION: 07/01/2019 DATE OF DISCHARGE: 07/04/2019 RESIDENT: Torie Estrella DO ADMITTING ATTENDING: Arie Gomez MD DISCHARGE ATTENDING: Antonio Olson MD CONSULTS: 1. Neurology, Dr. Salazar. 2. Pulmonology, Dr. Renee. 3. Speech and stroke team. PROCEDURE: Brain MRI. DIAGNOSES: 1. Acute hypertensive encephalopathy. 2. Hypertensive emergency. 3. Acute lacunar infarct secondary to hypertensive emergency. 4. Chronic hypertension. 5. Leukocytosis. 6. Dysphagia. 7. Systolic murmur. 8. Monocular diplopia of the left eye. DISCHARGE MEDICATIONS: 1. Amlodipine 10 mg p.o. daily. 2. Atorvastatin 40 mg p.o. q.h.s. 3. Losartan 50 mg p.o. b.i.d. 4. Bystolic 10 mg p.o. daily. DISCONTINUED MEDICATIONS: Labetalol 450 mg b.i.d. HISTORY OF PRESENT ILLNESS/HOSPITAL COURSE: Ms. Davis is a 74-year-old female with a history of chronic hypertension, who came into the emergency department with a 4-day history of altered mental status, facial droop, or confusing speech. The patient's family tried to commit her to come to the emergency department by Monday, but ultimately she was not brought until . The patient was admitted for altered mental status, but upon further evaluation, was found to be in hypertensive emergency. A brain MRI was ordered, which showed acute/subacute cluster of several tiny lacunar infarcts in the left thalamus. Multiple bilateral old lacunar infarcts in the thalami. Evidence for chronic hypertensive encephalopathy and moderate degree of chronic ischemic white matter changes. The patient was started on a nicardipine drip and admitted to the CCU to have blood pressure dropped with a goal of less than 180 systolic in the first hour and remaining goals for the next day, less than 160. The patient's nicardipine drip was then titrated down the next day as she was transferred to the floor and started on a p.o. regimen of amlodipine and losartan. This did not improve her blood pressure less than 160, so the addition of Bystolic as the patient was specifically requesting a beta-kulwinder as it has worked well in the past for blood pressure control. Bystolic was sought because of the dual action of decreased systemic vascular resistance as well as the beta-kulwinder action. Neurology was consulted. Dr. Salazar agreed with our assessment and recommended to start aspirin and atorvastatin, and they placed an order to start on 07/03. This recommendation was followed. Aspirin was not started originally because the MRI findings showed punctate foci of hemosiderin representing remote tiny hemorrhages throughout the thalami. A few of those were also seen in the temporal lobe and left parieto-occipital lobe and bilateral cerebral hemispheres. The patient's blood pressures were much better in the 140s range on 07/04. Our goal is to be less than 160 upon discharge, and we are following up with the patient and to establish primary care provider and to recheck her blood pressure over at [facility] on Monday. DISPOSITION: The patient is stable upon discharge and meeting her blood pressure goals with oral medications that we started in hospital. DISCHARGE INSTRUCTIONS: 1. Location: To home. 2. Diet: Heart-healthy diet with low sodium less than 2 g daily and DASH diet. 3. Activity: As tolerated. 4. Followup: Follow up with primary care in 3 days' time at [facility] to establish PCP and blood pressure check. Job ID: [id number]
== END 2019-07-04 13:57 | disposition home or self-care (01) | DRG 77 ==
LOC: ERS 12:36 → CCU 17:59 → 2SE 07-02 19:38
PROVIDERS: ADMIT Family Medicine; ATTEND Family Medicine
DX: I67.4 Hypertensive encephalopathy (principal); I63.81 Other cerebral infarction due to occlusion or stenosis of small artery; I16.1 Hypertensive emergency; R29.810 Facial weakness; I10 Essential (primary) hypertension; R47.02 Dysphasia; R29.704 NIHSS score 4; R40.2362 Coma scale, best motor response, obeys commands, at arrival to emergency department; R40.2142 Coma scale, eyes open, spontaneous, at arrival to emergency department; R40.2242 Coma scale, best verbal response, confused conversation, at arrival to emergency department; R01.1 Cardiac murmur, unspecified; Z82.49 Family history of ischemic heart disease and other diseases of the circulatory system; E87.6 Hypokalemia; H53.2 Diplopia
CPT/HCPCS: 36415; 70450; 70498; 70551; 71045; 76770; 80053; 80061; 80306; 80307; 81003; 81015; 82550; 82570; 83036; 83735; 84100; 84145; 84156; 84443; 84484; 85007; 85025; 85027; 85610; 85730; 93005; 93306; 96361; 96374; 96375; 96376; J2060; J7050; Q9967

== ENCOUNTER 2025-08-11 17:48 | Emergency (ER) | payer MEDICARE, MEDICAID ==
[2025-08-11 23:07] LABS: #Basophils 0.03 10x3/uL (0.0-0.2); #Eosinophils Less than 0.03 10x3/uL (0.0-0.7); #Monocytes 1.45 10x3/uL (0.11-0.59); #Neutrophils 13.46 10x3/uL (1.40-6.50); %Basophils 0.2 % (0.0-1.0); %Eosinophils 0.1 % (0.0-10.0); %Lymphocytes 6.7 % (21.0-51.0); %Monocytes 9.0 % (0.0-10.0); %Neutrophils 83.7 % (42.0-75.0); Hematocrit 43.2 % (36.0-47.0); Hemoglobin 13.9 g/dL (12.0-16.0); Mean Corpuscular Hemoglobin 29.0 pg (27.0-31.0); Mean Corpuscular Volume 90.0 fL (78.0-98.0); Platelet Count 222 10x3/uL (130-400); Red Blood Cell (RBC) Count 4.80 mill/uL (4.20-5.40); White Blood Cell (WBC) Count 16.08 10x3/uL (4.8-10.8)
[2025-08-11 23:46] LABS: ALT (SGPT) 8 U/L (Less than 34); AST (SGOT) 17 U/L (11-34); Albumin 4.1 g/dL (3.1-4.5); Alkaline Phosphatase 100 U/L (40-110); Anion Gap 16 mmol/L (10-20); BUN (Urea Nitrogen) 19 mg/dL (9.8-20.1); Bilirubin, Total 2.0 mg/dL (0.3-1.2); Calc. Creatinine Clearance 0 mL/min (70-130); Calcium 10.0 mg/dL (7.8-10.44); Carbon Dioxide 24 mmol/L (23-31); Chloride 99 mmol/L (98-107); Globulin 3.8 g/dL (2.4-3.5); Glucose 156 mg/dL (83-110); Potassium 3.7 mmol/L (3.5-5.1); Sodium 135 mmol/L (136-145)
[2025-08-11 23:56] LABS: Free T4 (Free Thyroxine) 0.98 ng/dL (0.70-1.48)
[2025-08-12 01:27] LABS: CAUTI Indications for Culture Dysuria,urgency,freq; Glucose, Urine (Dipstick) 50 mg/dL (Negative); Leukocyte 250 Leu/uL (Negative); Protein, Urine (Dipstick) 70 mg/dL (Neg-Trace); Specific Gravity, Urine 1.034 (1.002-1.036); WBC/HPF 21-50 HPF (0-3)
[2025-08-12 01:29] LABS: Bacteria/HPF Rare-Few HPF (None Seen); Urine Culture Reflex Yes Yes
== END 2025-08-12 03:25 | disposition home or self-care (01) ==
LOC: ERS 17:48
DX: S82.035A Nondisplaced transverse fracture of left patella, initial encounter for closed fracture (principal); S00.83XA Contusion of other part of head, initial encounter; I72.5 Aneurysm of other precerebral arteries; I10 Essential (primary) hypertension; Z86.73 Personal history of transient ischemic attack (TIA), and cerebral infarction without residual deficits; W01.198A Fall on same level from slipping, tripping and stumbling with subsequent striking against other object, initial encounter
CPT/HCPCS: 36415; 70450; 70486; 72125; 80053; 81001; 84439; 84443; 85025; 87086; 90471; 90715